=== PATIENT | female | born 1955 | race African-American/Black ===

== ENCOUNTER 2020-02-08 09:09 | Emergency (ER) | payer MEDICARE, OTHER ==
[~2020-02-08] VITALS: Ht 154.9 cm; Wt 68.6 kg
[~2020-02-08 09:09] MED LIST: GLIM4TAB8 PO; METF10007 PO; OLME20TA17 PO; SIMV20TA18 PO
[2020-02-08 09:29] VITALS: BP 149/61
[2020-02-08] MEDS ORDERED: DOXY100T PO (10:23)
[2020-02-08] MEDS ORDERED: PRED20TA PO (10:23)
--- NOTE | 2020-02-08 10:24 | PHYS DOC ---
Past Medical History Past Medical History: Diabetes-Type II Additional Past Medical Histor: EXCEMA Past Surgical History: No Surgical History, Hysterectomy Smoking Status: Current Every Day Smoker Alcohol Use: None Drug Use: None General Adult EDM: Chief Complaint: SKIN RASH HPI: HPI: 64-year-old female presenting with a rash on the anterior chest wall over the past few days. She reports a itching sensation with erythema. She put some peroxide on it which helped moderately. She has a history of eczema but this is a little different. She denies any recent exposure to new metals new foods new detergents. She denies fevers or exposure to plants such as poison zehra or oak. Review of systems negative for fevers rapidly spreading rash fluctuant masses difficulty breathing shortness of breath headache. All other review of systems negative. ED course: 64-year-old female presenting with a dermatitis of the anterior chest wall given prednisone and cephalexin to follow-up with her doctor in 1 to 2 days. The patient has been examined and was not found to have an emergency medical condition. The patient was then discharged home in stable condition to follow up with their primary care physician over the next 1-2 days. They were to return if their symptoms worsened or if they were concerned for any reason. They were also instructed to return to the emergency department if they were unable to get the recommended and appropriate follow-up. [id number] discharge instructions and return precautions were given. Patient's questions were answered to their satisfaction. Patient is comfortable with plan. Heart Score: Risk Factors: Risk Factors: DM, Current or recent (<one month) smoker, HTN, HLP, family history of CAD, obesity. Risk Scores: Score 0 - 3: 2.5% MACE over next 6 weeks - Discharge Home Score 4 - 6: 20.3% MACE over next 6 weeks - Admit for Clinical Observation Score 7 - 10: 72.7% MACE over next 6 weeks - Early Invasive Strategies Allergies: Allergies: Allergies Coded Allergies Type Severity Reaction Last Updated Verified Penicillins Allergy Intermediate rash 12/13/13 Yes Physical Exam: PE: Constitutional: Well developed, well nourished, no acute distress, non-toxic appearance. HENT: Normocephalic, atraumatic, bilateral external ears normal, oropharynx moist, no oral exudates, nose normal. Eyes: PERRLA, EOMI, conjunctiva normal, no discharge. [] Neck: Normal range of motion, no tenderness, supple, no stridor. [] Cardiovascular:Heart rate regular rhythm, no murmur [] Lungs & Thorax: Bilateral breath sounds clear to auscultation Abdomen: Bowel sounds normal, soft, no tenderness, no masses, no pulsatile masses. Skin: Patient has erythema on the anterior chest wall with maculopapular rash. No drainage. No fluctuant masses. No crepitus to palpation. Lung sounds are bilaterally equal. Back: No tenderness, no CVA tenderness. [] Extremities: No tenderness, no cyanosis, no clubbing, ROM intact, no edema. Neurologic: Alert and oriented X 3, normal motor function, normal sensory function, no focal deficits noted. [] Psychologic: Affect normal, judgement normal, mood normal. [] Current Patient Data: Vital Signs: Vital Signs Date Time Temp Pulse Resp B/P (MAP) Pulse Ox O2 Delivery O2 Flow Rate FiO2 02/08/20 09:29 98.2 18 18 149/61 (90) 97 Room Air 98.2 EKG: EKG: [] Radiology/Procedures: Radiology/Procedures: [] Course & Med Decision Making: Course & Med Decision Making Pertinent Labs and Imaging studies reviewed. (See chart for details) [] Dragon Disclaimer: GreenSand Disclaimer: This electronic medical record was generated, in whole or in part, using a voice recognition dictation system. Departure Departure Impression: Primary Impression: Acute eczema Additional Impression: Dermatitis Disposition: HOME, SELF-CARE Condition: STABLE Referrals: MARYCARMEN SLOAN MD (PCP) Patient Instructions: Contact Dermatitis, [id number] Additional Instructions: Follow-up with your primary physician in 1 to 2 days. Return to the emergency department if you have any new or concerning findings. Scripts Cephalexin (KEFLEX) 500 Mg Capsule 1 CAP PO TID for 7 Days, #21 CAP 0 Refills Prov: GARRETT ALAS MD 02/08/20 Prednisone (PREDNISONE) 20 Mg Tablet 2 TAB PO DAILY, #10 TAB 0 Refills Prov: GARRETT ALAS MD 02/08/20 Justicifation of Admission Dx: Justifications for Admission: Justification of Admission Dx: N/A GARRETT ALAS MD Feb 08, 2020 10:24
[2020-02-08] MEDS ORDERED: CEPH-264 PO (10:59)
== END 2020-02-08 10:58 | disposition home or self-care (01) ==
LOC: ER 09:09
DX: L25.9 Unspecified contact dermatitis, unspecified cause (principal); R21 Rash and other nonspecific skin eruption; R20.2 Paresthesia of skin; E11.9 Type 2 diabetes mellitus without complications; F17.200 Nicotine dependence, unspecified, uncomplicated; Z90.710 Acquired absence of both cervix and uterus; Z88.0 Allergy status to penicillin
CPT/HCPCS: 99283

== ENCOUNTER 2020-06-18 10:14 | Emergency (ER) | payer MEDICARE, OTHER ==
[~2020-06-18] VITALS: Ht 154.9 cm; Wt 66.0 kg
[~2020-06-18 10:14] MED LIST changes: +CEPH-264 PO; +DOXY100T PO; +PRED20TA PO
[2020-06-18 10:24] VITALS: BP 118/54
[2020-06-18] MEDS ORDERED: PRED-220 PO (10:51)
[2020-06-18] MEDS ORDERED: HYDR25TA PO (10:51)
[2020-06-18] MEDS ORDERED: FAMO20TA5 PO (10:51)
--- NOTE | 2020-06-18 10:52 | PHYS DOC ---
Past Medical History Past Medical History: Diabetes-Type II Additional Past Medical Histor: EXCEMA (ANGELINA WEST APRN) Past Surgical History: No Surgical History, Hysterectomy (ANGELINA WEST APRN) Smoking Status: Current Every Day Smoker Alcohol Use: None Drug Use: None (ANGELINA WEST APRN) General Adult EDM: Chief Complaint: ITCHING HPI: HPI: Patient is a 65 year old female who presents today complaining of itching to her lower back bilaterally as well as buttocks, symptoms began a couple months ago. Patient states it has been on and off since then. She states she has been seen by cover stitch machine operator and they plan to do a skin test on July 01, 2020, she states they have given her some topical medicine to use with no relief. Denies any fever. (ANGELINA WEST APRN) Review of Systems: Review of Systems: Constitutional: Denies fever or chills. [] Musculoskeletal: Denies back pain or joint pain. [] Integument: reports itching Neurologic: Denies headache, focal weakness or sensory changes. [] Psychiatric: Denies depression or anxiety. [] (ANGELINA WEST APRN) Heart Score: Risk Factors: Risk Factors: DM, Current or recent (<one month) smoker, HTN, HLP, family history of CAD, obesity. Risk Scores: Score 0 - 3: 2.5% MACE over next 6 weeks - Discharge Home Score 4 - 6: 20.3% MACE over next 6 weeks - Admit for Clinical Observation Score 7 - 10: 72.7% MACE over next 6 weeks - Early Invasive Strategies (ANGELINA WEST APRN) Allergies: Allergies: Allergies Coded Allergies Type Severity Reaction Last Updated Verified Penicillins Allergy Intermediate rash 12/13/13 Yes (ANGELINA WEST APRN) Physical Exam: PE: Constitutional: Well developed, well nourished, no acute distress, non-toxic appearance. [] Skin: Redness from itching noted to bilateral lower back. Back: No tenderness, no CVA tenderness. [] Extremities: No tenderness, no cyanosis, no clubbing, ROM intact, no edema. [] Neurologic: Alert and oriented X 3, normal motor function, normal sensory function, no focal deficits noted. [] Psychologic: Affect normal, judgement normal, mood normal. [] (ANGELINA WEST APRN) Current Patient Data: Vital Signs: Vital Signs Date Time Temp Pulse Resp B/P (MAP) Pulse Ox O2 Delivery O2 Flow Rate FiO2 06/18/20 10:24 97.5 103 18 118/54 (75) 95 Room Air 97.5 (ANGELINA WEST APRN) EKG: EKG: [] (ANGELINA WEST APRN) Radiology/Procedures: Radiology/Procedures: [] (ANGELINA WEST APRN) Course & Med Decision Making: Course & Med Decision Making Pertinent Labs and Imaging studies reviewed. (See chart for details) This is a 65-year-old female patient presenting to the ED today with itching for roughly 2 months on and off. She is following up with a cover stitch machine operator who put her on a topical ointment which she states is not helping. She is supposed to have a skin allergy test on July 01, 2020. She was discharged with tapered dose of prednisone, and hydroxyzine and Pepcid, follow up with cover stitch machine operator as scheduled (ANGELINA WEST APRN) Dragon Disclaimer: Dragon Disclaimer: This electronic medical record was generated, in whole or in part, using a voice recognition dictation system. (ANGELINA WEST APRN) Departure Departure Impression: Primary Impression: Itching Disposition: 01 DC HOME SELF CARE/HOMELESS Condition: STABLE Referrals: GABY DAVIES MD (PCP) follow up in 2 weeks Patient Instructions: Itching-Brief Additional Instructions: You were seen in the emergency room for itching. We highly recommend you continue following up with a cover stitch machine operator. We put you on a short course of prednisone. Take it as prescribed. Take the rest of the medicine as ordered. Scripts Hydroxyzine Hcl (HYDROXYZINE HCL) 25 Mg Tablet 1 TAB PO TID, #90 TAB 2 Refills Prov: ANGELINA WEST APRN 06/18/20 Prednisone (PREDNISONE ) 10 Mg Tablet 10 MG PO UD for PREDNISONE TAPER, #39 TAB 0 Refills Take 3 tablets by mouth twice a day for 3 days, then take 2 tablets by mouth twice a day for 3 days, then take 1 tablet by mouth twice a day for 3 days, then take 1 tablet by mouth daily x 3 days, then stop. Prov: ANGELINA WEST APRN 06/18/20 Famotidine (FAMOTIDINE) 20 Mg Tablet 20 MG PO DAILY, #14 TAB Prov: ANGELINA WEST [employer]AD 06/18/20 Attending Signature Attending Signature I have reviewed the PA/SIEBEL ARCHITECT's note and plan of care. I was available for consultation as needed during the patient's visit in the emergency department. I agree with the clinical impression, plan, and disposition. (KELBY VEE DO) ANGELINA WEST APRN Jun 18, 2020 10:52 KELBY VEE DO Jun 18, 2020 14:49
== END 2020-06-18 11:16 | disposition home or self-care (01) ==
LOC: ER 10:14
DX: L29.8 Other pruritus (principal); M54.5 Low back pain; E11.9 Type 2 diabetes mellitus without complications; F17.200 Nicotine dependence, unspecified, uncomplicated; Z88.0 Allergy status to penicillin
CPT/HCPCS: 99283